=== PATIENT | male | born 1955 | race Caucasian/White ===

== ENCOUNTER → 2019-05-02 | Outpatient (CLI) | payer BC ==
[~2019-05-02] MED LIST: ALBU2.5V8 INH; ALPR0.5T PO; AMLO5TAB10 PO; AMOX1TAB11 PO; ASPI-630 PO; ATOR20TA58 PO; BREO ELLIPTA 11 EACH IH; BUPR150T6 PO; CARV6.2511 PO; FURO-68 PO; GADOTERATE 7.5 MMOL/15ML VIAL. IVP ONE; HYDR-2765 PO; LOSA100T14 PO
--- NOTE | 2019-05-02 16:09 | KCIC ---
BRAIN WO/W CONTRAST Date: 05/02/2019 1:15 PM Indication: Acute right-sided vision loss on 04/17/2019 Comparison: None. Technique: Multiplanar multisequence MRI of the brain was performed with and without intravenous contrast using the standard protocol. 26 cc Dotarem contrast was administered intravenously during the exam. Findings: No acute infarct. No acute or chronic hemorrhage. The ventricles are normal in size and configuration without hydrocephalus. Mild scattered FLAIR hyperintensities in the subcortical and periventricular deep white matter, a nonspecific finding, most commonly seen with chronic small vessel ischemic disease. Mild generalized cerebral and cerebellar bile loss. No abnormal enhancement. The scalp and calvarium are normal. Partial empty sella. No Chiari malformation. Mild incompletely characterized degenerative spondylosis of the visualized upper cervical spine. The visualized orbits and globes are normal. The visualized paranasal sinuses are clear. The mastoid air cells are clear. Normal flow voids within the vertebral, basilar, and internal carotid arteries indicating patency. IMPRESSION: 1. No acute infarct, hemorrhage, mass, or hydrocephalus. 2. Mild chronic small vessel ischemic disease and age appropriate cerebral volume loss. Electronically signed by: Americo Antonio MD (05/02/2019 4:06 PM) [id number]
== END | disposition home or self-care (01) ==
LOC: KCIC MRI 12:31
PROVIDERS: ATTEND Physician Assistant Medical
DX: G93.89 Other specified disorders of brain (principal); M47.812 Spondylosis without myelopathy or radiculopathy, cervical region; H54.7 Unspecified visual loss
CPT/HCPCS: 70553; A9575